=== PATIENT | male | born 1995 | race Caucasian/White ===

== ENCOUNTER → 2017-09-28 | Outpatient (CLI) | payer OTHER ==
[~2017-09-28] MED LIST: GADAVIST IV PRN
--- NOTE | 2017-09-28 11:54 | DIAGNOSTIC IMAGING REPORT ---
BRAIN COMBO CLINICAL HISTORY: R51 StaarsrcW86.7 Vision lossR20.2 [id number] neuropathy. Mental status change. COMPARISON STUDY: No previous studies for comparison. TECHNIQUE: Utilizing a 1.5 Dana magnet and dedicated coil, multiplanar, multiecho imaging of the brain was performed pre and postcontrast administration. IV administration of 8 mL of Gadavist contrast was uneventful. FINDINGS: Diffusion-weighted images are negative for acute ischemic process. Signal characteristics of the cerebellar as well as cerebral hemispheres are unremarkable. Ventricular system is midline. Postcontrast images are considered negative for an enhancing lesion. IMPRESSION: Normal study. The above report was generated using voice recognition software. It may contain grammatical, syntax or spelling errors. Electronically signed by: Jeff Sol M.D. 09/28/2017 11:53 AM Dictated Date/Time: 09/28/2017 11:47 AM
--- NOTE | 2017-09-29 15:55 | EEG Procedure Note ---
EEG Procedure Note Date of Service Sep 29, 2017. Start / End Times Start Time: 2:53 PM End Time: 2:13 PM Referring Physician TATYANA Arzola History This is a 21-year-old male who presents with headaches, paresthesias and vision loss episodes. EEG for further evaluation of possible seizure etiology. Inpatient Medication List Current Inpatient Medications Medications (Trade) Dose Ordered Sig/Mp Route Start Time Stop Time Status Last Admin Dose Admin Gadobutrol (Gadavist) 8.5 mmol UD PRN IV 09/28/17 11:45 10/02/17 11:44 Description This is a 21 electrode EEG with a single channel dedicated to limited EKG. The electrodes were placed in accordance with the International 10-20 system. At the start of the recording the patient was in an awake state. Background was well organized and composed of symmetric mixed alpha and beta frequencies. There was a symmetric well-formed moderate amplitude 10-11 Hz posterior dominant rhythm that was reactive to eye opening and closure. Hyperventilation was not done. Intermittent photic stimulation at various frequencies produced no abnormalities. Sleep was indicated by sharp vertex waves and symmetric sleep spindles Interpretation This is a normal awake and asleep routine EEG. There was no electrographic seizures or epileptiform discharges. Clinical Correlation A normal EEG does not rule out epilepsy if there is a strong clinical suspicion.
== END | disposition home or self-care (01) ==
LOC: C.MRI 10:56
PROVIDERS: ATTEND Physician Assistant
DX: R51 Headache (principal); H54.7 Unspecified visual loss; R20.2 Paresthesia of skin